=== PATIENT | male | born 1990 | race Caucasian/White ===

== ENCOUNTER 2019-06-21 16:03 | Emergency (ER) | payer SELFPAY ==
[2019-06-21 16:10] VITALS: BP 132/89; PULSE 89; O2SAT 98
--- NOTE | 2019-06-21 17:26 | ERPHSYRPT ---
- History of Present Illness Time Seen by Provider: 06/21/19 17:25 Source: patient, police Exam Limitations: no limitations Patient Subjective Stated Complaint: pt brougth in by police for medical clearance, pt was pulled oover. Triage Nursing Assessment: pt walked in, alert, respe asy, skin w/d/p. moves all ext well Physician History: Patient is a 29-year-old male with a reported history of Crohn's presents with a chief complaint of needing medical clearance. Of note, the patient was in custody of law enforcement. He reportedly had 4 shots of vodka earlier this afternoon and decided to drive a vehicle without a license. He then tried to evade the police when they attempted to pull them over and caused them to pursue him for short distance before he pulled over on his own and got out of the vehicle and surrendered. There was no reported MVC and the patient denied sustaining any injuries during this process. He has no specific complaints at this time other than "I want to go home". He denies any illicit drug use and currently does not take any prescribed medications. Allergies/Adverse Reactions: No Known Drug Allergies Allergy (Unverified 06/21/19 16:10) Home Medications: No Reportable Medications [No Reported Medications] 06/21/19 [History] Hx Influenza Vaccination/Date Given: No Hx Pneumococcal Vaccination/Date Given: No Immunizations Up to Date: Yes - Review of Systems Constitutional: No Symptoms Respiratory: No Cough, No Cyanosis, No Dyspnea Cardiac: No Symptoms, No Chest Pain Abdominal/Gastrointestinal: No Abdominal Pain, No Nausea, No Vomiting Psychological: Other (Alcohol abuse) All Other Systems: Reviewed and Negative - Past Medical History Pertinent Past Medical History: Yes GI Medical History: Crohns Disease Other Medical History: urnating blood - Past Surgical History Past Surgical History: No - Social History Smoking Status: Current every day smoker Exposure to second hand smoke: Yes Drug Use: none Patient Lives Alone: No - Nursing Vital Signs Nursing Vital Signs: Initial Vital Signs Temperature 97.4 F 06/21/19 16:05 Pulse Rate 89 06/21/19 16:05 Respiratory Rate 18 06/21/19 16:05 Blood Pressure 132/89 06/21/19 16:05 O2 Sat by Pulse Oximetry 98 06/21/19 16:05 Pain Scale Pain Intensity 0 - Physical Exam General Appearance: no apparent distress, alert Eye Exam: PERRL/EOMI, No scleral icterus, No EOM palsy/anisocoria Ears, Nose, Throat Exam: normal ENT inspection Neck Exam: normal inspection, non-tender, supple, No meningismus Respiratory Exam: normal breath sounds, lungs clear, airway intact, No chest tenderness, No respiratory distress Cardiovascular Exam: regular rate/rhythm, normal heart sounds, normal peripheral pulses, capillary refill <2 sec, No murmur, No friction rub, No gallop, No tachycardia Gastrointestinal/Abdomen Exam: soft, No normal bowel sounds, No tenderness, No distention, No mass, No guarding, No ecchymosis Rectal Exam: deferred Back Exam: normal inspection Extremity Exam: normal inspection, No tenderness Neurologic Exam: alert, oriented x 3, cooperative Skin Exam: normal color, warm, dry, rash, No petechiae, No jaundice SpO2 Interpretation: normal SpO2: 98 O2 Delivery: Room Air - Course Nursing assessment & vital signs reviewed: Yes Ordered Tests: Active Orders 24 hr Category Date Time Status Clean Catch Urine Specimen STAT Care 06/21/19 16:18 Active Blood Alcohol [ETHYL ALCOHOL] Stat Lab 06/21/19 16:33 Completed Urine Triage Profile Stat Lab 06/21/19 17:02 Completed Lab/Rad Data: Laboratory Results 06/21/19 06/21/19 Range/Units 17:02 16:33 Urine Opiates Level NEGATIVE (NEGATIVE) Ur Methadone NEGATIVE (NEGATIVE) Urine Barbiturates NEGATIVE (NEGATIVE) Ur Phencyclidine (PCP) NEGATIVE (NEGATIVE) Urine Amphetamine POSITIVE (NEGATIVE) U Benzodiazepine Level NEGATIVE (NEGATIVE) Urine Cocaine NEGATIVE (NEGATIVE) Urine Marijuana (THC) POSITIVE (NEGATIVE) Ethyl Alcohol 129 H (0-10) mg/dL - Progress Progress: unchanged Progress Note: 06/22/19 08:41 Well-appearing with no apparent injuries or complaints. Law enforcement had the coreroom foundry laborer obtain a serum alcohol level per protocol to my knowledge and I don 't feel the patient needs any additional workup or imaging at this point. He denies being a daily drinker and deemed a low risk of withdrawal from alcohol. The patient is deemed appropriate to go to snf in my medical opinion. Counseled pt/family regarding: drug and/or alcohol abuse, lab results, diagnosis , need for follow-up - Departure Departure Disposition: Skilled Nursing/Long-Term Clinical Impression: Alcohol abuse Condition: Stable Critical Care Time: No Referrals: DOCTOR,NO FAMILY [Primary Care Provider] - Instructions: Alcohol Use - When Is Drinking a Problem?
[2019-06-21 18:19] LABS: Amphetamine,Urine POSITIVE (NEGATIVE); Barbiturate,Urine NEGATIVE (NEGATIVE); Benzodiazepine,Urine NEGATIVE (NEGATIVE); Cocaine,Urine NEGATIVE (NEGATIVE); Methadone,Urine NEGATIVE (NEGATIVE); Opiate,Urine NEGATIVE (NEGATIVE); PCP,Urine NEGATIVE (NEGATIVE); THC,Urine POSITIVE (NEGATIVE)
== END 2019-06-21 17:40 | disposition home or self-care (01) ==
LOC: ED 16:03
DX: Z02.89 Encounter for other administrative examinations (principal); F10.10 Alcohol abuse, uncomplicated
CPT/HCPCS: 36415; 80307; 99283; G0480